=== PATIENT | female | born 1985 | race Caucasian/White ===

== ENCOUNTER 2020-02-10 12:27 | Emergency (ER) | payer OTHER, SELFPAY ==
--- NOTE | ~2020-02-10 | XR_ITS ---
EXAMINATION: XR chest 1V portable EXAM DATE: 02/10/2020 13:34 INDICATION: Shortness of breath. TECHNIQUE: Portable AP frontal chest x-ray was obtained. Comparison is made to prior examination from 05/11/2018. FINDINGS: The lungs are clear. There are no pleural effusions. The cardiomediastinal silhouette is within normal limits. There is no pneumothorax suspected. The bones and soft tissues are unremarkab le. IMPRESSION: Normal chest x-ray exam. Reviewed, dictated and finalized at location A. IMPRESSION: Normal chest x-ray exam.
[2020-02-10 12:30] VITALS: BP 142/111; PULSE 97; RESP 17; TEMP 36.8; O2SAT 100
[2020-02-10 12:36] VITALS: PULSE 97
--- NOTE | 2020-02-10 12:38 | ECG_ITS ---
Measurements Intervals [place] Rate: 99 P: 13 TN: 175 QRS: 14 QRSD: 82 T: 29 QT: 343 QTc: 441 Interpretive Statements SINUS RHYTHM NORMAL ECG Electronically Signed On 02-10-2020 13:04:33 CDT by Earl Deng D.O.
--- NOTE | 2020-02-10 12:39 | PC.NURSE ---
Police at bedside for patient at this time. patient presented to the ED from skilled nursing and police state that they will stay with patient throughout her time in the ED>
--- NOTE | 2020-02-10 13:08 | ED.GENADULT ---
HPI - General Adult General Chief complaint: Unspecified Stated complaint: DIFFICULTY BREATHING History of Present Illness HPI narrative: Patient is 34 years old white. Presented with chest pain, shortness of breath and dizziness started 45 minutes prior to arrival to the emergency room Patient got arrested yesterday, today came from the intermediate with the above complaint. Patient denies any fever, chills, nausea, vomiting, drug use, history of similar symptoms, or taking any medications at home. Related Data Home Medications Medication Instructions Recorded Confirmed No Home Medications 02/10/20 02/10/20 Allergies Allergy/AdvReac Type Severity Reaction Status Date / Time No Known Allergies Allergy Verified 02/10/20 12:36 Review of Systems Review of Systems: Narrative: CONSTITUTIONAL: Denies fever, chills, or sweats. EYES: Denies visual changes, redness, or discharge. ENT: Denies rhinorrhea, congestion, sore throat, or otalgia. CARDIOVASCULAR: Denies chest pain, palpitations, or edema. RESPIRATORY: Denies cough or dyspnea. GASTROINTESTINAL: Denies abdominal pain, nausea, vomiting, or diarrhea. GENITOURINARY: Denies dysuria or hematuria. SKIN: Denies rash or itching. MUSCULOSKELETAL: Denies back pain, joint pain, or myalgia. NEUROLOGIC: Denies headache, numbness, or weakness. PSYCHIATRIC: Denies anxiety or depression. PMFSH Social History Social History Gender identity (if verbalized by the patient): Female Exam Narrative: Exam Narrative: General appearance: Well-developed, well-nourished, looks depressed Skin: Normal color Head: Normocephalic, nontraumatic Eyes: Clear conjunctiva ENT: Oropharynx normal, ears normal, nose normal Neck: Supple, nontender Chest and respiratory: Airway patent, no respiratory distress, no accessory muscle use Heart: Regular rate/rhythm Abdomen: Soft, nontender, no organomegaly, quiet bowel sounds Vascular: Normal peripheral pulses, normal capillary refill. Musculoskeletal: Normal range of motion, nontender back Neurologic: Alert and oriented ?3, [employer] is normal as tested, no gross motor deficit Course Course Emergency Course: Stable Vital Signs Vital signs: Vital Signs Temperature 36.8 C 02/10/20 12:30 Pulse Rate 97 02/10/20 12:30 Respiratory Rate 17 02/10/20 12:30 Blood Pressure 142/111 H 02/10/20 12:30 Pulse Oximetry 100 02/10/20 12:30 Temperature 36.8 C 02/10/20 12:30 Pulse Rate 97 02/10/20 13:45 Respiratory Rate 18 02/10/20 13:45 Blood Pressure 132/97 H 02/10/20 13:45 Pulse Oximetry 100 02/10/20 13:45 Medical Decision Making MDM Narrative Medical decision making narrative: Patient presents with shortness of breath and lightheadedness, anxiety, depression is my concern. Labs, chest x-ray, d-dimer ordered and EKG. Work-up showed a positive urine drug screen for amphetamine otherwise within normal limits, My diagnosis is anxiety related symptoms. Patient is stable to go back to intermediate. And she is medically clear Vital Signs Vital Signs: Vital Signs Temperature 36.8 C 02/10/20 12:30 Pulse Rate 97 02/10/20 12:30 Respiratory Rate 17 02/10/20 12:30 Blood Pressure 142/111 H 02/10/20 12:30 Pulse Oximetry 100 02/10/20 12:30 Temperature 36.8 C 02/10/20 12:30 Pulse Rate 97 02/10/20 13:45 Respiratory Rate 18 02/10/20 13:45 Blood Pressure 132/97 H 02/10/20 13:45 Pulse Oximetry 100 02/10/20 13:45 Lab Data Result diagrams: 02/10/20 13:26 02/10/20 13:26 Labs: Lab Results 02/10/20 02/10/20 02/10/20 Range/Units 13:26 13:26 13:26 WBC 8.9 (4.5-10.0) K/mm3 RBC 4.71 (4.2-5.4) M/mm3 Hgb
[2020-02-10 13:37] LABS: Basophils Percent Auto 0.5 % (0.2-1.2); Eosinophils Percent Auto 0.3 % (0-4.4); Hematocrit 43.1 % (37.0-47.0); Hemoglobin 14.4 g/dL (12.0-15.0); Immature Granulocyte Absolute 0.02 K/mm3 (0.00-0.031); Immature Granulocyte Percent A 0.2 % (0-0.5); Lymphocytes Absolute Auto 1.33 K/mm3 (0.9-3.2); Mean Corpuscular HGB Conc 33.4 g/dl (32-36); Mean Corpuscular Hemoglobin 30.6 pg (26-34); Mean Corpuscular Volume 91.5 fl (80-100); Mean Platelet Volume 10.2 fl (7.4-10.4); Monocytes Absolute Auto 0.5 K/mm3 (0.1-0.6); Monocytes Percent Auto 5.8 % (2.6-8.5); Neutrophils Absolute Auto 6.9 K/mm3 (1.3-6.7); Neutrophils Percent Auto 78.2 % (45.5-73.1); Platelet Count Result 280 k/mm3 (150-375); Red Blood Count 4.71 M/mm3 (4.2-5.4); White Blood Count 8.9 K/mm3 (4.5-10.0)
[2020-02-10 13:41] LABS: Add Urine Microscopic? YES; Appearance Urine Clear (Clear); Bilirubin Urine Negative (Negative); Blood Urine 2+ (Negative); Color Urine Yellow (Yellow); Glucose Urine UA Negative (Negative); Ketones Urine Negative (Negative); Leukocyte Esterase Ur 2+ LEU/UL (Negative); Mucus Urine Moderate /lpf; Nitrate Urine Negative (Negative); Protein Urine Negative (Negative); Specific Grav Ur 1.018 (1.001-1.035); Squamous Epithelial Cell Urine Moderate /hpf (Few); Transitional Epi Cells Urine Rare /hpf (None Seen); Urobilinogen Urine Negative mg/dL (<2.0); WBC Urine 16-20 /hpf
[2020-02-10 13:45] VITALS: BP 132/97; PULSE 97; RESP 18; O2SAT 100
[2020-02-10 13:50] LABS: Alanine Aminotransferase 29 U/L (4-35); Albumin Level 4.3 g/dL (3.5-5.1); Alkaline Phosphatase 81 U/L (38-126); Anion Gap 10 mmol/L (8-16); Aspartate Amino Transferase 32 U/L (14-36); Bilirubin,Total 0.4 mg/dL (0.2-1.3); Blood Urea Nitrogen 11 mg/dL (7-17); Calcium 9.6 mg/dL (8.4-10.2); Carbon Dioxide 26 mmol/L (22-30); Chloride 103 mmol/L (98-107); Estimated CRCL calculation 107 ml/min; Estimated Glomerular Filt Rate > 60; Glucose 108 mg/dL (65-105); Sodium 139 mmol/L (137-145)
[2020-02-10 13:51] LABS: D Dimer 0.43 ug/mL (<0.48)
[2020-02-10 13:55] LABS: Barbiturate Screen Urine Negative (Negative); Benzodiazepines Screen Urine Negative (Negative)
[2020-02-10 13:57] LABS: Cannabinoid Screen Urine Negative (Negative); Cocaine Screen Urine Negative (Negative); Methadone Screen Urine Negative (Negative); Opiate Screen Urine Negative (Negative); Phencyclidine Screen Urine Negative (Negative)
[2020-02-10 14:02] LABS: Troponin I < 0.012 ng/mL (0.000-0.034)
[2020-02-10 14:19] LABS: Amphetamine Screen Urine Positive (Negative)
== END 2020-02-10 14:55 | disposition home or self-care (01) ==
PROVIDERS: Emergency Provider Emergency Medicine
DX: F41.9 Anxiety disorder, unspecified (principal); F32.9 Major depressive disorder, single episode, unspecified
CPT/HCPCS: 36415; 71045; 80053; 80307; 81001; 81025; 84484; 85025; 85380; 87086; 87088; 93005; 99284

== ENCOUNTER 2023-10-17 08:19 | Emergency (ER) | payer SELFPAY ==
[2023-10-17 08:25] VITALS: BP 121/84; PULSE 90; RESP 16; TEMP 36.7; O2SAT 100
--- NOTE | 2023-10-17 08:59 | ED.GENADULT ---
HPI - General Adult General Chief complaint: Skin/Abscess/Foreign Body Stated complaint: swelling near groin Time Seen by Provider: 10/17/23 08:25 History of Present Illness HPI narrative: 37-year-old female presenting with labial abscess. Symptoms started 2 days ago. She has significant swelling and pain of her left labia. She has had 1 of these over 10 years ago. No systemic signs of illness such as fever chills nausea vomiting diarrhea. Related Data Allergies Allergy/AdvReac Type Severity Reaction Status Date / Time No Known Allergies Allergy Verified 10/17/23 08:28 [facility] Social History Social History Gender identity (if verbalized by the patient): Female Exam Narrative: APPEARANCE: No apparent distress. Head: atraumatic. EYES: EOMI, NOSE: Atraumatic NECK: Trachea midline RESPIRATORY: No increased rate of breathing CARDIOVASCULAR: RRR, ABDOMINAL: Non-distended Genital exam: swelling and erythema with fluctuance over the left labia. No swelling around the bartholin gland MUSCULOSKELETAl: No obvious deformities NEURO: Alert. Moving 4/4 extremities SKIN:: Warm, dry. Normal color PSYCHIATRIC: Normal affect Course Vital Signs Vital signs: Vital Signs Temperature 98.1 F 10/17/23 08:25 Pulse Rate 90 10/17/23 08:25 Respiratory Rate 16 10/17/23 08:25 Blood Pressure 121/84 10/17/23 08:25 Pulse Oximetry 100 10/17/23 08:25 Oxygen Delivery Room Air 10/17/23 08:25 Temperature 98.1 F 10/17/23 08:25 Pulse Rate 90 10/17/23 08:25 Respiratory Rate 16 10/17/23 08:25 Blood Pressure 121/84 10/17/23 08:25 Pulse Oximetry 100 10/17/23 08:25 Oxygen Delivery Room Air 10/17/23 08:25 Procedures Abscess I/D other: Date of Incision: 10/17/23 Side (if applicable): left Sedation/analgesia: none Local Anesthetic: lidocaine 1% and with epi Amount of anesthesia used (mL): 5 Technique: incised with #11 blade and probed loculations Amount of fluid expressed (mL): 5 Irrigation: Yes Packing used?: none I&D Results: Pus and Blood Complications: pain Medical Decision Making MDM Narrative Medical decision making narrative: -Course: 37-year-old female left labial swelling. Consistent with labial abscess as opposed to bartholin gland abscess. Incision and drainage was performed with improvement symptoms. Discharged on pain medication antibiotics. OBGYN follow-up return precautions given -DDX includes but is not limited to: labial abscess, Bartholin's gland cyst/abscess -Co-morbidities complicating care: history of abscess -Procedures: incision and drainage -Interventions: Motrin Tylenol Bactrim -Shared decision making / Disposition: discharge -RX Motrin Tylenol Bactrim Vital Signs Vital Signs: Vital Signs Temperature 98.1 F 10/17/23 08:25 Pulse Rate 90 10/17/23 08:25 Respiratory Rate 16 10/17/23 08:25 Blood Pressure 121/84 10/17/23 08:25 Pulse Oximetry 100 10/17/23 08:25 Oxygen Delivery Room Air 10/17/23 08:25 Temperature 98.1 F 10/17/23 08:25 Pulse Rate 90 10/17/23 08:25 Respiratory Rate 16 10/17/23 08:25 Blood Pressure 121/84 10/17/23 08:25 Pulse Oximetry 100 10/17/23 08:25 Oxygen Delivery Room Air 10/17/23 08:25 Discharge Plan Discharge Clinical Impression: Abscess of genital labia Patient Disposition: Home, Self-Care Condition: Stable Instructions: Antibiotic Form, Abscess (ED) Additional Instructions: please use Motrin Tylenol for pain. Complete a course of Bactrim antibiotics. Please follow-up with your OBGYN in the next 2-3 days to ensure this is healing appropriately. If you notice the swelling and pain return become worse or if you develops fever/chills you to return emergency department immediately re-evaluation. Prescriptions: New ibuprofen 800 mg tablet 80
[2023-10-17] MEDS: ACETAMINOPHEN 500 MG TABLET 1000 MG PO (09:10)
[2023-10-17] MEDS: IBUPROFEN 400 MG TABLET 800 MG PO (09:10)
[2023-10-17] MEDS: SULFAMETHOXAZOLE/TRIMETHOPRIM 800/160 MG DS TABLET 1 TAB PO (09:11)
[2023-10-17 09:15] VITALS: BP 132/86; PULSE 84; RESP 19; O2SAT 100
== END 2023-10-17 09:16 | disposition home or self-care (01) ==
PROVIDERS: Emergency Provider Emergency Medicine
DX: N76.4 Abscess of vulva (principal)
CPT/HCPCS: 56405; 99283; A9270